=== PATIENT | female | born 1930 | race Caucasian/White ===

== ENCOUNTER 2018-04-20 11:22 | Inpatient (IN) | payer OTHER ==
[~2018-04-20] VITALS: Ht 167.6 cm; Wt 61.7 kg
[2018-04-20 11:43] VITALS: Ht 167.6 cm; Wt 61.7 kg
[2018-04-20 12:28] LABS: BASOPHIL % 1.1 % (0-2); PLATELET COUNT 172 x10^3mcL (130-400)
[2018-04-20 12:35] LABS: RED CELL DISTRIBUTION WIDTH 14.9 % (11.5-14.5)
[2018-04-20 12:58] LABS: CALCIUM 8.5 mg/dL (8.5-10.1); CARBON DIOXIDE 29.4 mmol/L (21-32); CHLORIDE SERUM 108 mmol/L (98-107); CREATININE SERUM 0.9 mg/dL (0.6-1.0); GLUCOSE SERUM 96 mg/dL (74-106); POTASSIUM SERUM 3.7 mmol/L (3.5-5.1); SODIUM SERUM 145 mmol/L (136-145)
[2018-04-20 13:03] LABS: ALBUMIN 3.1 g/dL (3.4-5.0); ALKALINE PHOSPHATASE 62 U/L (46-116); ALT/SGPT 24 U/L (14-59); AST/SGOT 19 U/L (15-37); BILIRUBIN TOTAL 0.41 mg/dL (0.20-1.00); TOTAL PROTEIN, SERUM 6.9 g/dL (6.4-8.2)
[2018-04-20 15:33] VITALS: BP 125/71
[2018-04-20 17:22] LABS: MAGNESIUM 2.4 mg/dL (1.8-2.4); PHOSPHOROUS 3.5 mg/dL (2.5-4.9)
[2018-04-20 17:55] LABS: FREE T4 0.97 ng/dL (0.76-1.46); FREE THYROXINE INDEX 2.7 ug/dL (1.4-4.5); T4(THYROXINE) 8.6 ug/dL (4.7-13.3)
[2018-04-20 20:48] VITALS: BP 139/63
[2018-04-21 01:04] LABS: microscopic required? NO
[2018-04-21 01:21] LABS: UA SPECIFIC GRAVITY 1.015 (1.005-1.035); urine erythrocyte NEGATIVE (NEGATIVE)
[2018-04-21 01:58] LABS: AMPHETAMINE QUAL UR NONE DETECTED (See below)
[2018-04-21 05:29] VITALS: BP 141/66
[2018-04-21 06:56] LABS: CALCIUM 8.5 mg/dL (8.5-10.1); CARBON DIOXIDE 29.5 mmol/L (21-32); CHLORIDE SERUM 107 mmol/L (98-107); CREATININE SERUM 0.7 mg/dL (0.6-1.0); GLUCOSE SERUM 94 mg/dL (74-106); POTASSIUM SERUM 4.1 mmol/L (3.5-5.1); SODIUM SERUM 142 mmol/L (136-145)
[2018-04-21 08:55] VITALS: BP 138/51
[2018-04-21 09:30] LABS: BASOPHIL % 0.8 % (0-2); PLATELET COUNT 168 x10^3mcL (130-400)
[2018-04-21 09:35] LABS: RED CELL DISTRIBUTION WIDTH 14.6 % (11.5-14.5)
[2018-04-21 16:34] VITALS: BP 147/48
[2018-04-21 20:58] VITALS: BP 127/61
[2018-04-22 05:09] VITALS: BP 151/76
[2018-04-22 06:16] LABS: BASOPHIL % 0.2 % (0-2); PLATELET COUNT 156 x10^3mcL (130-400)
[2018-04-22 06:21] LABS: RED CELL DISTRIBUTION WIDTH 15.7 % (11.5-14.5)
[2018-04-22 06:29] LABS: CALCIUM 8.5 mg/dL (8.5-10.1); CARBON DIOXIDE 31.8 mmol/L (21-32); CHLORIDE SERUM 104 mmol/L (98-107); CREATININE SERUM 0.7 mg/dL (0.6-1.0); GLUCOSE SERUM 93 mg/dL (74-106); POTASSIUM SERUM 4.3 mmol/L (3.5-5.1); SODIUM SERUM 140 mmol/L (136-145)
[2018-04-22 08:30] VITALS: BP 172/69
[2018-04-22] MEDS ORDERED: AMLODIPINE BES2.5 M1 PO (14:37)
[2018-04-22] MEDS ORDERED: CITALOPRAM HYDR10 M1 PO (14:38)
[2018-04-22] MEDS ORDERED: DIVALPROEX SOD500 M3 PO (14:39)
[2018-04-22] MEDS ORDERED: ARICEPT5 MG PO (14:40)
[2018-04-22] MEDS ORDERED: LORAZEPAM0.5 MG PO (14:41)
[2018-04-22 16:59] VITALS: BP 135/72
[2018-04-22 20:49] VITALS: BP 114/58
[2018-04-22 22:37] VITALS: BP 114/58
[2018-04-23 06:00] VITALS: BP 141/50
[2018-04-23 06:42] LABS: CALCIUM 8.6 mg/dL (8.5-10.1); CARBON DIOXIDE 28.7 mmol/L (21-32); CHLORIDE SERUM 102 mmol/L (98-107); CREATININE SERUM 0.7 mg/dL (0.6-1.0); GLUCOSE SERUM 93 mg/dL (74-106); POTASSIUM SERUM 3.8 mmol/L (3.5-5.1); SODIUM SERUM 140 mmol/L (136-145)
[2018-04-23 06:43] LABS: BASOPHIL % 0.2 % (0-2); PLATELET COUNT 198 x10^3mcL (130-400)
[2018-04-23 06:58] LABS: RED CELL DISTRIBUTION WIDTH 15.6 % (11.5-14.5)
[2018-04-23 09:54] VITALS: BP 125/106
[2018-04-23 12:01] VITALS: BP 125/106
== END 2018-04-23 13:37 | disposition hospice, home (50) | DRG 56 ==
LOC: ED 11:22 → DU 14:31 → MU 14:31 → DU 15:52 → MU 16:24
PROVIDERS: Emergency Medicine; Family Medicine
DX: G30.9 Alzheimer's disease, unspecified (principal); G93.41 Metabolic encephalopathy; E44.0 Moderate protein-calorie malnutrition; F02.80 Dementia in other diseases classified elsewhere, unspecified severity, without behavioral disturbance, psychotic disturbance, mood disturbance, and anxiety; M16.0 Bilateral primary osteoarthritis of hip; M47.892 Other spondylosis, cervical region; J44.9 Chronic obstructive pulmonary disease, unspecified; K21.9 Gastro-esophageal reflux disease without esophagitis; I10 Essential (primary) hypertension; F32.9 Major depressive disorder, single episode, unspecified; Z68.22 Body mass index [BMI] 22.0-22.9, adult; Z91.81 History of falling; Z66 Do not resuscitate
CPT/HCPCS: 83880; 84439; 97110-GP; 97530-GP; J1644; J7620